=== PATIENT | female | born 2000 | race Hispanic/Latino ===

== ENCOUNTER 2020-10-25 07:38 | Emergency (ER) | payer SELFPAY ==
[2020-10-25] MEDS ORDERED: Ibuprofen 200 MG TAB ONE (08:21)
[2020-10-25] MEDS ORDERED: Oxymetazoline HCl 0.05% (30 ML BOT) ONE (08:21)
== END 2020-10-25 08:30 | disposition home or self-care (01) ==
LOC: ERS 07:38
DX: J32.9 Chronic sinusitis, unspecified (principal); F17.290 Nicotine dependence, other tobacco product, uncomplicated
CPT/HCPCS: 71045; 93005